=== PATIENT | female | born 1985 | race Caucasian/White ===

== ENCOUNTER 2022-01-08 06:11 | Emergency (ER) | payer OTHER, SELFPAY ==
[2022-01-08] VITALS (24 sets, daily range): BP systolic 121–182; BP diastolic 61–97; PULSE 101–149; RESP 17–44; TEMP 37.7; O2SAT 96–100
--- NOTE | 2022-01-08 06:15 | RT.EKG_ITS ---
APPROVED REPORT Exam: Resting ECG Reason for Exam: rapid heart rate Patient Location: E HR:120 bpm ECG Measurements Heart Rate 120 AXIS AR 159 P 65 QRSd 89 QRS 22 QT 323 T 38 QTc 457 Conclusion Sinus tachycardia. LAE, consider biatrial enlargement Poor baseline/artifact
--- NOTE | 2022-01-08 06:27 | ED.GENADUL_ITS ---
Discharge Plan Disposition Patient Disposition: STILL A PATIENT Condition: Improving Discharge Details Clinical Impression: Hypomagnesemia, Hypokalemia Primary Care Provider: Unknown,Unknown ED Provider: Gerardo Harrington Home Meds and New Rx's Prescriptions: No Action levothyroxine 75 mcg Tablet 75 mcg PO DAILY Medical Decision Making 36-year-old female presents approximately 6:30 AM with a number of complaints. States that she hurts all over, she has a fear of dying, that she has been bleeding from every orifice, she has had nausea with intermittent emesis, and that she recently relocated to this area from [place] and is not seen a healthcare facility in quite some time. Patient is anxious and hyperventilating. States that she has a longstanding history of anxiety, substance abuse, and also reports a history of hepatitis and liver cirrhosis. IV access established, fluids initiated and patient given anxiolytic. Stool exam reveals yellow to brown stool that is guaiac negative. We will attempt to request records from some of her previous healthcare facilities in the [facility]. Laboratories note a white count of 8, hematocrit 36, platelets 68. INR is 1.2. Sodium was 140, potassium 3.2, bicarb 18, BUN 11, creatinine 0.9. Magnesium 1.4, total bili 1.6, AST 73, ALT 70. Troponin is 99. Patient is a very poor historian, she is extremely anxious, there does not appear to be a unifying diagnosis at this time. Her partner states she has had poor sleep for 2 days, has had intermittent nausea and emesis. Will obtain CT scan of chest/abdomen and pelvis, pt to be signed out to Dr Harrington [facility] General Mode of arrival: ambulatory . Date/Time Provider Initiated Documentation: 01/08/22 06:19 . Limitations to Documentation: no limitations . Information obtained by: patient . History of Present Illness 36 year old F presents to the emergency department with the chief complaint of Anxiety, body hurts all over, bloody stool, described as moderate, Patient reports no radiation. Patient started experiencing this unknown and it has been intermittent. No relieving factors improve symptom(s), No exacerbating fa ctors reported . Patient did receive the following treatments prior to arrival, none Related Data Home Medications Medication Instructions Recorded Confirmed levothyroxine 75 mcg tablet 75 mcg PO DAILY 01/08/22 01/08/22 Allergies Allergy/AdvReac Type Severity Reaction Status Date / Time acetaminophen AdvReac Mild Other (See Unverified 01/08/22 08:17 Comment) clindamycin AdvReac Mild Other (See Unverified 01/08/22 08:17 Comment) ibuprofen AdvReac Mild Other (See Unverified 01/08/22 08:17 Comment) naproxen AdvReac Mild Other (See Unverified 01/08/22 08:17 Comment) General Stated Complaint: GenMedical TAE: 2 Review of Systems Narrative: States he has been throwing up, bleeding from her nose and mouth, bleeding from her rectum. None of this is active at this time. She is anxious and fearful of . PFSH All Active Problems (Updated 01/08/22 @ 07:22 by Arturo Krause MD) Hypomagnesemia (Acute) Hypokalemia (Acute) Medical History Cirrhosis of liver Hepatitis Social History Smoking/Tobacco Use Status: Former Tobacco Use Smoking risk assessment performed?: Yes Alcohol Intake: former Drug use: Current Sobriety Substance use type: former substance user Do you feel safe at home: Yes Do you feel safe in your relationship?: Yes Exam Narrative Exam Narrative: GEN: awake, alert, oriented 3. Pleasant, well groomed, anxious. HEAD: Normocephalic, atraumatic ENT: Mucous membranes moist, oropharynx unremarkable, External ear exam unremarkable EYES: PERRL, EOMI NECK: Full ROM, no SHIN, no menigismus CHEST/RESP: Nontender, clear to auscultation bilateral, no wheeze/rhonchi/rales CARDIOVASCULAR: Regular and tachycardic, no murmur, rub angie. 2+ Rad pulse bilateral ABDOMEN: Soft, nontender, no mass. +Bowel sounds EXT: Full ROM, no edema, no rash Neuro: Grossly normal neurologic exam, conversant, interactive. Psych: Speech fluent/pressed, thoughts tangential at times, affect anxious Course Vital Signs Vital signs: Vital Signs Temperature 37.7 C H 01/08/22 06:16 Pulse 124 H 01/08/22 06:16 Respiratory Rate 28 H 01/08/22 06:16 Blood Pressure 182/97 H 01/08/22 06:16 Pulse Oximetry 98 01/08/22 06:16 Temperature 37.7 C H 01/08/22 06:16 Temperature Source Oral 01/08/22 06:16 Pulse 124 H 01/08/22 06:16 Respiratory Rate 28 H 01/08/22 06:16 Blood Pressure 182/97 H 01/08/22 06:16 Pulse Oximetry 98 01/08/22 06:16 Pain Level 9 01/08/22 06:16 Sign Out Sign Out Data: Sign Out Comment: Followup labs and CT imaging Last updated by Arturo Krause MD at 01/08/22 07:28
[2022-01-08 06:41] LABS: Abs Immature Grans 0.03 10^3/uL (0.0-0.06); Absolute Basophil Count 0.02 10^3/uL (0.0-0.2); Absolute Eosinophil Count 0.05 10^3/uL (0.0-0.7); Absolute Lymphocyte Count 0.93 10^3/uL (1.2-3.4); Absolute Monocyte Count 0.49 10^3/uL (0.1-0.8); Absolute Neutrophil Count 6.84 10^3/uL (1.2-6.7); Basophils % 0.2; Eosinophils % 0.6; HCT 36.8 % (36.0-46.0); HGB 13.2 g/dL (11.2-15.7); Immature Grans % 0.4; Lymphocytes % 11.1; MCH 30.3 pg (27.0-33.0); MCHC 35.9 % (32.0-36.0); MCV 84 fL (80-95); MPV 12.4 fL (8.0-11.0); Monocytes % 5.9; Neutrophils % 81.8; RBC 4.36 10^6/uL (3.93-5.22); RDW 12.4 % (11.7-14.6); WBC 8.36 10^3/uL (4.4-10.8)
[2022-01-08 06:51] LABS: INR 1.2 (0.9-1.1); PTT Activated 27.4 sec (21.0-27.5); Prothrombin Time 12.1 sec (9.3-11.0)
[2022-01-08] MEDS: Ondansetron 4 MG/2 ML VIAL (06:52)
[2022-01-08] MEDS: LORazepam 20 MG/10 ML VIAL IVP ×2 (06:52→07:19)
[2022-01-08] MEDS: Normal Saline 1,000 ML 1000 ML IV (06:52)
[2022-01-08 06:54] LABS: Platelet Count 68 10^3/uL (130-400)
[2022-01-08 06:55] LABS: Diff Comment PLT Morph Reviewed; RBC Morphology Normal
[2022-01-08 07:07] LABS: ALT 70 U/L (14-59); AST 73 U/L (15-37); Albumin 3.8 g/dL (3.4-5.0); Alkaline Phosphatase 137 U/L (46-116); Anion Gap 15.5 mmol/L (3-11); BUN 11 mg/dL (7-18); Bilirubin, Total 1.6 mg/dL (0.2-1.0); CO2 18.5 mmol/L (21.0-32.0); CREATININE 0.9 mg/dL (0.55-1.02); Calcium 9.3 mg/dL (8.5-10.1); Chloride 106 mmol/L (98-107); Estimated GFR 84.44 (mL/min/1.73m2); Glucose 111 mg/dL (74-106); Magnesium 1.4 mg/dL (1.8-2.4); Potassium 3.2 mmol/L (3.5-5.1); Sodium 140 mmol/L (136-145); Total Protein 7.6 g/dL (6.4-8.2)
[2022-01-08 07:11] LABS: ETHANOL BLOOD < 3.0 mg/dL (<10); Troponin I 99 ng/L (<or=60)
--- NOTE | 2022-01-08 07:30 | DI.CT_ITS ---
Exam(s) CT CHEST PE ABD PELVIS W EXAM: CT CHEST PE ABD PELVIS W CLINICAL HISTORY: Tachycardic, vomiting, hurts all over, elev trop. TECHNIQUE: Imaging Protocol: Axial CT angiography was performed with multi-slice acquisition and m ulti-planar and/or 3D reconstructions. CONTRAST MATERIAL: Intravenous: Omnipaque 350 Contrast volume:100 ml Oral: None COMPARISON: No exams were available for comparison FINDINGS: CHEST: PULMONARY ARTERIES: There are no intra-arterial filling defects to suggest the presence of acute pulm onary emboli. LUNGS: Mild benign-appearing increased markings in the right upper lobe noted. No confluent infiltra helga nor pleural effusions. No ominous pulmonary nodules. Also mild benign-appearing increased moy ngs in the lingular segment of the left lung.. There are no pleural effusions. MEDIASTINUM: There is no hilar nor mediastinal adenopathy. Visualized thyroid unremarkable. CARDIAC: Heart size is normal. There is no pericardial effusion. There is no significant shift of t he interventricular septum.Caliber thoracic aorta is within normal limits. No dissection. No obviou s coronary artery calcification. OSSEOUS: No significant osseous lesions.No fractures.. ABDOMEN: There is no ascites. LIVER: Liver appears somewhat cirrhotic. No discrete focal hepatic lesions nor dilatation of intrahep atic ducts. GALLBLADDER/BILIARY: The gallbladder surgically absent. No abnormal fluid collection in the gallbladd er fossa in this patient apparently had recent cholecystectomy. CBD is not dilated. PANCREAS: No evidence of pancreatic mass nor dilatation of the pancreatic duct. SPLEEN: Spleen is significantly enlarged. No splenic lesions identified. Splenic vein is patent but s lightly prominent in size, exhibiting diameter of 12 millimeters. In addition, there are collateral v essels also noted, indicating element of portal venous hypertension. ADRENALS: There are no significant adrenal masses. KIDNEYS:No cysts evident. No calculi nor hydronephrosis. No solid renal masses. ABDOMINAL AORTA: Abdominal aorta is not enlarged. LYMPH NODES: There is no retroperitoneal or para-aortic adenopathy. ABDOMINAL WALL/GI: No evidence of significant anterior abdominal wall hernia. No bowel obstruction. PELVIS: LYMPH NODES: There is no intrapelvic nor inguinal adenopathy. GI: No evidence of appendicitis.No evidence of sigmoid diverticulitis. URINARY BLADDER: No calculi nor masses evident REPRODUCTIVE: Anteverted uterus appears unremarkable. There are cysts in both ovaries. Largest is in the right ovary and measures 1.7 x 1.6 cm. The largest cyst in the left ovary measures slightly small er. There is no for free fluid. No extraovarian adnexal masses. OSSEOUS: No significant osseous lesions. IMPRESSION: 1. No evidence of acute pulmonary emboli nor pulmonary infarction. Mild increased benign-appearing ma rkings in right upper lobe and lingular segment of the left lung. No confluent infiltrates and no ple ural effusions evident. 2. Cirrhotic appearing liver and splenomegaly, enlarged splenic vein and varices, these findings cons istent with portal venous hypertension. 3. There is no ascites. 4. Benign-appearing cysts in the ovaries as described above, most probably follicular. 5. No evidence of appendicitis nor acute diverticulitis. Called by myself to ER physician RADIATION DOSE DELIVERED: 1,363.02mGy.cm Total DLP DATA REPOSITORY: All CT scans at this facility are submitted to the National Radiology Data Registry (NRDR) Dose Index Registry (DIR) with the [employer] (A[employer]). RADIATION OPTIMIZATION: All CT scans at this facility use at least one of these dose optimization te chniques: automated exposure control; mA and/or kV adjustment per patient size (includes targeted exa ms where dose is matched to clinical indication); or iterative reconstruction.
[2022-01-08 07:34] LABS: TSH < 0.01 uIU/mL (0.36-3.74)
[2022-01-08] MEDS: Omnipaque 350 MG/ML 100 ML BTL IV (07:43)
[2022-01-08] MEDS: Normal Saline Flush 10 ML SYR IVP (07:44)
[2022-01-08 09:11] LABS: Bilirubin Negative (Negative); Blood Negative (Negative); Clarity Clear (Clear); Glucose Negative (Negative); Ketones Trace mg/dL (Negative); Leukocyte Esterase Negative (Negative); Nitrite Negative (Negative); Urobilinogen 0.2 EU/dL (Up TO 0.2); pH 5.5 (5-8)
[2022-01-08 09:44] LABS: *AMPHETAMINES SCREEN URINE Negative (Negative); *BARBITURATES SCREEN URINE Negative (Negative); *BENZODIAZEPINES SCREEN URINE Negative (Negative); Cannabinoids THC Positive (Negative); Cocaine Screen,Urine Negative (Negative); METHADONE URINE SCREEN Negative (Negative); OPIATES URINE SCREEN Negative (Negative)
[2022-01-08 09:45] LABS: Tricyclic Antidepressants Negative (Negative)
[2022-01-08] MEDS: MAGNESIUM SULFATE 2 GM/50 ML BAG IVPB (10:27)
[2022-01-08] MEDS: POTASSIUM CHLORIDE 20 MEQ/100 ML BAG 50 MEQ IVPB (10:28)
--- NOTE | 2022-01-08 11:05 | W.EDPROG ---
Date of service: 01/08/22 Time of Service: 11:12 Medical Decision Making Care was signed out by Dr. Krause. Please see his documentation regarding initial ED presentation course. Plan at signout was to follow-up on CT imaging as well as repeat troponin. Patient has received Ativan 1 mg x 2 for anxiety. Shortly after signout, patient ripped out her IV noting pain from potassium infusion. IV was replaced and infusion was adjusted. CT imaging has not fully resulted although I did speak with the radiologist who noted findings consistent with cirrhosis including portal hypertension. No pulmonary embolism. Official interpretation pending. Initial labs reviewed and patient does note slight elevation of troponin. Plan for repeat EKG and delta troponin. Patient reassessed and remains tachycardic although improved. She is normotensive. Patient mentating well. Patient having full body pain and demanding opioid analgesic. I explained the patient this is not indicated at this time and offered ibuprofen. Patient declined. Patient ripped out second IV and is refusing to stay for additional work-up and treatment. I had a discussion with her about my diagnostic/treatment plan. She declines plan and wishes to leave against medical advise. I reiterated my concerns to the patient and explained the risks of leaving prior to completion of workup and treatment. I specifically emphasized the possibility of life-threatening or lifestyle modifying disease that would not be appropriately treated if they leave. Patient verbalized understanding of my concerns and the potential for life threatening or lifestyle modifying disease. Patient has capacity to make informed decision. I again explained my concerns and urged the patient to stay for treatment as outlined. Patient continued to refuse. I then discussed potential less ideal alternatives to diagnostic/treatment plan as outlines and patient refused. I recommended that the patient follow-up with primary care physician RICHARD or return to the Emergency Department at any time for further treatment. She was encouraged to follow-up with her primary care physician and a gastrointestinal specialist. Lab Data Lab results reviewed: Yes I reviewed the patient's lab results. Labs: Laboratory Tests Range/Units 01/08/22 01/08/22 01/08/22 06:27 06:27 06:31 WBC (4.4-10.8) 10^3/uL RBC (3.93-5.22) 10^6/uL Hgb (11.2-15.7) g/dL Hct (36.0-46.0) % MCV (80-95) fL MCH (27.0-33.0) pg MCHC (32.0-36.0) % RDW (11.7-14.6) % Plt Count (130-400) 10^3/uL MPV (8.0-11.0) fL Immature Gran % Neutrophils % Lymphocytes % Monocytes % Eosinophils % Basophils % Nucleated RBC % (0.0-0.3) % Absolute Neutrophils (1.2-6.7) 10^3/uL Absolute Lymphocytes (1.2-3.4) 10^3/uL Absolute Monocytes (0.1-0.8) 10^3/uL Absolute Eosinophils (0.0-0.7) 10^3/uL Absolute Basophils (0.0-0.2) 10^3/uL RBC Morphology PT (9.3-11.0) sec INR (0.9-1.1) APTT (21.0-27.5) sec Sodium (136-145) mmol/L 140 Potassium (3.5-5.1) mmol/L 3.2 L Chloride (98-107) mmol/L 106 Carbon Dioxide (21.0-32.0) mmol/L 18.5 L Anion Gap (3-11) mmol/L 15.5 H BUN (7-18) mg/dL 11 Creatinine (0.55-1.02) mg/dL 0.9 Est GFR (CKD-EPI 2020) (mL/min/1.73m2) 84.44 Glucose (74-106) mg/dL 111 H Calcium (8.5-10.1) mg/dL 9.3 Magnesium (1.8-2.4) mg/dL 1.4 L Total Bilirubin (0.2-1.0) mg/dL 1.6 H AST (15-37) U/L 73 H ALT (14-59) U/L 70 H Alkaline Phosphatase (46-116) U/L 137 H Troponin I (<or=60) ng/L 99 H* Total Protein (6.4-8.2) g/dL 7.6 Albumin (3.4-5.0) g/dL 3.8 TSH (0.36-3.74) uIU/mL < 0.01 L Free T4 (0.76-1.46) ng/dL 2.06 H Urine Color (Yellow) Urine Clarity (Clear) Urine pH (5-8) Ur Specific Comstock (1.005-1.025) Urine Protein (Negative) mg/dL Urine Ketones (Negative) mg/dL Urine Blood (Negative) Urine Nitrite (Negative) Urine Bilirubin (Negative) Urine Urobilinogen (Up TO 0.2) EU/dL Ur Leukocyte Esterase (Negative) Urine Glucose (Negative) mg/dL Urine Opiates Screen (Negative) Urine Methadone Screen (Negative) Ur Barbiturates Screen (Negative) Ur Tricyclics Screen (Negative) Ur Amphetamines Screen (Negative) U Benzodiazepines Scrn (Negative) Urine Cocaine Screen (Negative) Ur THC Screen (Negative) Ethyl Alcohol (<10) mg/dL < 3.0 Range/Units 01/08/22 01/08/22 01/08/22 06:31 06:31 08:49 WBC (4.4-10.8) 10^3/uL 8.36 RBC (3.93-5.22) 10^6/uL 4.36 Hgb (11.2-15.7) g/dL 13.2 Hct (36.0-46.0) % 36.8 MCV (80-95) fL 84 MCH (27.0-33.0) pg 30.3 MCHC (32.0-36.0) % 35.9 RDW (11.7-14.6) % 12.4 Plt Count (130-400) 10^3/uL 68 L MPV (8.0-11.0) fL 12.4 H Immature Gran % 0.4 Neutrophils % 81.8 Lymphocytes % 11.1 Monocytes % 5.9 Eosinophils % 0.6 Basophils % 0.2 Nucleated RBC % (0.0-0.3) % 0.0 Absolute Neutrophils (1.2-6.7) 10^3/uL 6.84 H Absolute Lymphocytes (1.2-3.4) 10^3/uL 0.93 L Absolute Monocytes (0.1-0.8) 10^3/uL 0.49 Absolute Eosinophils (0.0-0.7) 10^3/uL 0.05 Absolute Basophils (0.0-0.2) 10^3/uL 0.02 RBC Morphology Normal PT (9.3-11.0) sec 12.1 H INR (0.9-1.1) 1.2 H APTT (21.0-27.5) sec 27.4 Sodium (136-145) mmol/L Potassium (3.5-5.1) mmol/L Chloride (98-107) mmol/L Carbon Dioxide (21.0-32.0) mmol/L Anion Gap (3-11) mmol/L BUN (7-18) mg/dL Creatinine (0.55-1.02) mg/dL Est GFR (CKD-EPI 2020) (mL/min/1.73m2) Glucose (74-106) mg/dL Calcium (8.5-10.1) mg/dL Magnesium (1.8-2.4) mg/dL Total Bilirubin (0.2-1.0) mg/dL AST (15-37) U/L ALT (14-59) U/L Alkaline Phosphatase (46-116) U/L Troponin I (<or=60) ng/L Total Protein (6.4-8.2) g/dL Albumin (3.4-5.0) g/dL TSH (0.36-3.74) uIU/mL Free T4 (0.76-1.46) ng/dL Urine Color (Yellow) Urine Clarity (Clear) Urine pH (5-8) Ur Specific Comstock (1.005-1.025) Urine Protein (Negative) mg/dL Urine Ketones (Negative) mg/dL Urine Blood (Negative) Urine Nitrite (Negative) Urine Bilirubin (Negative) Urine Urobilinogen (Up TO 0.2) EU/dL Ur Leukocyte Esterase (Negative) Urine Glucose (Negative) mg/dL Urine Opiates Screen (Negative) Negative Urine Methadone Screen (Negative) Negative Ur Barbiturates Screen (Negative) Negative Ur Tricyclics Screen (Negative) Negative Ur Amphetamines Screen (Negative) Negative U Benzodiazepines Scrn (Negative) Negative Urine Cocaine Screen (Negative) Negative Ur THC Screen (Negative) Positive A Ethyl Alcohol (<10) mg/dL Range/Units 01/08/22 08:49 WBC (4.4-10.8) 10^3/uL RBC (3.93-5.22) 10^6/uL Hgb (11.2-15.7) g/dL Hct (36.0-46.0) % MCV (80-95) fL MCH (27.0-33.0) pg MCHC (32.0-36.0) % RDW (11.7-14.6) % Plt Count (130-400) 10^3/uL MPV (8.0-11.0) fL Immature Gran % Neutrophils % Lymphocytes % Monocytes % Eosinophils % Basophils % Nucleated RBC % (0.0-0.3) % Absolute Neutrophils (1.2-6.7) 10^3/uL Absolute Lymphocytes (1.2-3.4) 10^3/uL Absolute Monocytes (0.1-0.8) 10^3/uL Absolute Eosinophils (0.0-0.7) 10^3/uL Absolute Basophils (0.0-0.2) 10^3/uL RBC Morphology PT (9.3-11.0) sec INR (0.9-1.1) APTT (21.0-27.5) sec Sodium (136-145) mmol/L Potassium (3.5-5.1) mmol/L Chloride (98-107) mmol/L Carbon Dioxide (21.0-32.0) mmol/L Anion Gap (3-11) mmol/L BUN (7-18) mg/dL Creatinine (0.55-1.02) mg/dL Est GFR (CKD-EPI 2020) (mL/min/1.73m2) Glucose (74-106) mg/dL Calcium (8.5-10.1) mg/dL Magnesium (1.8-2.4) mg/dL Total Bilirubin (0.2-1.0) mg/dL AST (15-37) U/L ALT (14-59) U/L Alkaline Phosphatase (46-116) U/L Troponin I (<or=60) ng/L Total Protein (6.4-8.2) g/dL Albumin (3.4-5.0) g/dL TSH (0.36-3.74) uIU/mL Free T4 (0.76-1.46) ng/dL Urine Color (Yellow) Yellow Urine Clarity (Clear) Clear Urine pH (5-8) 5.5 Ur Specific Comstock (1.005-1.025) 1.010 Urine Protein (Negative) mg/dL Negative Urine Ketones (Negative) mg/dL Trace H Urine Blood (Negative) Negative Urine Nitrite (Negative) Negative Urine Bilirubin (Negative) Negative Urine Urobilinogen (Up TO 0.2) EU/dL 0.2 Ur Leukocyte Esterase (Negative) Negative Urine Glucose (Negative) mg/dL Negative Urine Opiates Screen (Negative) Urine Methadone Screen (Negative) Ur Barbiturates Screen (Negative) Ur Tricyclics Screen (Negative) Ur Amphetamines Screen (Negative) U Benzodiazepines Scrn (Negative) Urine Cocaine Screen (Negative) Ur THC Screen (Negative) Ethyl Alcohol (<10) mg/dL Sign Out Sign Out Data: Sign Out Comment: Followup labs and CT imaging Last updated by Arturo Krause MD at 01/08/22 07:28 Discharge Plan Disposition Patient Disposition: AGAINST MEDICAL ADVICE Condition: Serious Discharge Details Clinical Impression: Diarrhea, Hypomagnesemia, Hypokalemia, Cirrhosis, Portal venous hypertension, Acute dehydration Primary Care Provider: Unknown,Unknown ED Provider: Gerardo Harrington Home Meds and New Rx's Prescriptions: No Action levothyroxine 75 mcg Tablet 75 mcg PO DAILY Discharge Instructions Instructions: Dehydration (ED), Hypokalemia (ED), Acute Diarrhea (ED), Hypomagnesemia (ED), Against Medical Advice (ED) Additional Instructions: You are leaving AGAINST MEDICAL ADVICE prior to completion of diagnostic work-up. Please be sure to follow-up with your primary care physician as soon as possible. Please return to the Emergency Department immediately should you desire further work-up and treatment as recommended.
[2022-01-08 11:06] LABS: FREE T4 2.06 ng/dL (0.76-1.46)
[2022-01-08 11:16] LABS: Troponin I 103 ng/L (<or=60)
== END 2022-01-08 11:11 | disposition left against medical advice (07) ==
PROVIDERS: Emergency Medicine; Emergency Provider Student in an Organized Health Care Education/Training Program
DX: E87.6 Hypokalemia (principal); E83.42 Hypomagnesemia; E86.0 Dehydration; K76.6 Portal hypertension; K74.60 Unspecified cirrhosis of liver; R19.7 Diarrhea, unspecified; R00.0 Tachycardia, unspecified; R06.4 Hyperventilation; Z87.891 Personal history of nicotine dependence
CPT/HCPCS: 71275; 74177; 80053; 80307; 81025; 93005; 96361; 96365; 96366; 96375; 99285; 80320; 81003; 83735; 84439; 84443; 84484; 85025; 85610; 85730; 93010; J2405; J3480; J3490